=== PATIENT | male | born 1990 | race Caucasian/White ===

== ENCOUNTER 2024-01-06 15:20 | Outpatient (REF) | payer BC, SELFPAY ==
[2024-01-06 14:10] LABS: Source Nasal/Nares
[2024-01-06 15:59] LABS: COVID-19 PCR Negative (Negative)
== END 2024-01-06 15:21 | disposition home or self-care (01) ==
LOC: LBN 15:20
PROVIDERS: Visit Provider Nurse Practitioner Family
DX: R05.9 Cough, unspecified (principal)
CPT/HCPCS: 87635

== ENCOUNTER 2025-01-13 19:09 | Outpatient (CLI) | payer BC, SELFPAY ==
--- NOTE | 2025-01-13 19:24 | DI.RAD_ITS ---
Exam(s) XR CHEST 2V PA LATERAL EXAM: XR CHEST 2V PA LATERAL CLINICAL HISTORY: ICD-10: R05.3 Chronic cough. TECHNIQUE: 2D digital imaging was performed. COMPARISON: No exams were available for comparison FINDINGS: 2 views: Heart size is normal. The mediastinum is not widened. Left lung is clear. There are mild increased markings in the lateral right lung base right lower lob e. No pleural effusions evident. IMPRESSION: Subtle mild infiltrate noted in the lateral right lung base. This is in the right lower lobe. There are no pleural effusions. DATA REPOSITORY: RADIATION DOSE DELIVERED:
--- NOTE | 2025-01-13 19:42 | DI.VRAD_ITS ---
PROCEDURE INFORMATION: Exam: XR Chest Exam date and time: 01/13/2025 7:13 PM Age: 34 years old Clinical indication: Chronic cough TECHNIQUE: Imaging protocol: Radiologic exam of the chest. Views: 2 views. COMPARISON: No relevant prior studies available. FINDINGS: Lungs: A small region of patchy opacity noted in the right lower lung zone, concerning for mild pneumonia. Pleural spaces: No pleural effusion. No pneumothorax. Heart/Mediastinum: No cardiomegaly. Bones/joints: Unremarkable. IMPRESSION: Concern for mild pneumonia in the right lower lung zone. Correlate with clinical findings. Dictated and Authenticated by: Stacie Leggett MD. Orderin Meenu Sow MD
== END 2025-01-13 19:29 ==
PROVIDERS: Visit Provider Physician Assistant Medical
DX: R05.3 Chronic cough (principal); R91.8 Other nonspecific abnormal finding of lung field
CPT/HCPCS: 71046

== ENCOUNTER 2025-05-25 17:00 | Outpatient (CLI) | payer BC, SELFPAY ==
--- NOTE | 2025-05-25 | DI.RAD_ITS ---
Exam(s) XR WRIST LT COMPLETE EXAM: XR WRIST LT COMPLETE CLINICAL HISTORY: M25.532 Pain in LT wrist. TECHNIQUE: 2D digital imaging was performed. COMPARISON: No exams were available for comparison FINDINGS: 3 views There no fractures distal radius and ulna nor of the scaphoid and scapholunate distance is normal. However, in the dorsal aspect of the wrist as seen on the lateral view there is a 4 x 3 mm calcific density noted. This may represent a triquetrum fracture. IMPRESSION: Possible small avulsion fracture of the dorsal aspect of the triquetrum bone DATA REPOSITORY: RADIATION DOSE DELIVERED:
--- NOTE | 2025-05-25 17:33 | DI.VRAD_ITS ---
PROCEDURE INFORMATION: Exam: XR Left Wrist Exam date and time: 05/25/2025 5:04 PM Age: 34 years old Clinical indication: Left; Pain in lt wrist TECHNIQUE: Imaging protocol: Radiologic exam of the left wrist. Views: 3 or more views. COMPARISON: No relevant prior studies available. FINDINGS: Bones/joints: Negative ulnar variance. Normal bone mineralization. Amorphous calcification along the dorsal aspect of the wrist near the carpal-carpal joint. Soft tissues: Unremarkable. IMPRESSION: Possible small avulsion fracture dorsal aspect of the triquetrum. Dictated and Authenticated by: Holly Hooper MD. Orderin Meenu Sow MD
== END 2025-05-25 17:20 ==
LOC: DI 17:00
PROVIDERS: Visit Provider Physician Assistant Medical
DX: M25.532 Pain in left wrist (principal)
CPT/HCPCS: 73110

== ENCOUNTER 2025-06-14 14:43 | Outpatient (CLI) | payer BC, SELFPAY ==
--- NOTE | 2025-06-14 13:38 | DI.RAD_ITS ---
Exam(s) XR WRIST LT LIMITED EXAM: XR WRIST LT LIMITED CLINICAL HISTORY: EVALUATE FRACTURE. TECHNIQUE: 2D digital imaging was performed of the left wrist. Two images were obtained. PA and lateral views were obtained. COMPARISON: CR,XR XR WRIST LT COMPLETE from 05/25/2025 FINDINGS: BONES: There has been no change in alignment of the osseous fragment on the dorsum of the wrist likely reflecting a triquetral fracture. There is no new fracture. No bony destructive lesion is seen. JOINTS: The carpal bones are normally aligned. SOFT TISSUE: Normal. IMPRESSION: Stable osseous density at the dorsum of the wrist likely reflecting a triquetral fracture. DATA REPOSITORY: RADIATION DOSE DELIVERED:
== END 2025-06-14 14:44 | disposition home or self-care (01) ==
LOC: DIORS 14:44
PROVIDERS: Visit Provider Student in an Organized Health Care Education/Training Program
DX: S62.112A Displaced fracture of triquetrum [cuneiform] bone, left wrist, initial encounter for closed fracture (principal)
CPT/HCPCS: 73100

== ENCOUNTER 2025-07-03 11:24 | Outpatient (CLI) | payer BC, SELFPAY ==
--- NOTE | 2025-07-03 12:06 | DI.RAD_ITS ---
Exam(s) XR ANKLE RT COMPLETE EXAM: XR ANKLE RT COMPLETE CLINICAL HISTORY: ACUTE R ANKLE PAIN, M25.571. TECHNIQUE: 2D digital imaging was performed of the right ankle. Four images were obtained. AP, lateral and oblique views were obtained. COMPARISON: No exams were available for comparison FINDINGS: BONES: No acute fracture is present. No bony destructive lesion is seen. JOINTS: The ankle mortise is normally aligned. SOFT TISSUE: There is soft tissue swelling around the ankle. No soft tissue gas is present. There is an old well corticated osseous tiny density anterior to the talus on the lateral view. IMPRESSION: There is no acute fracture or dislocation identified. DATA REPOSITORY: RADIATION DOSE DELIVERED:
== END 2025-07-03 11:44 ==
PROVIDERS: Visit Provider Nurse Practitioner Family
DX: M25.571 Pain in right ankle and joints of right foot (principal)
CPT/HCPCS: 73610